=== PATIENT | male | born 1950 | race Caucasian/White ===

== ENCOUNTER 2020-09-20 14:24 | Outpatient (CLI) | payer MEDICARE, OTHER ==
--- NOTE | 2020-09-20 16:13 | Ultrasound Report ---
PROCEDURE: Head or Neck Soft Tissue INDICATIONS: CERVICAL ADENOPATHY TECHNIQUE: Real time scanning was performed of the neck region of interest, with image documentation . COMPARISON: None. FINDINGS: Normal appearing submandibular glands are noted in the area of clinical interest. Prominent bilateral submandibular lymph notes are noted which does not meet pathologic size criteria which hav e normal fatty denisa. IMPRESSION: 1. Normal-appearing submandibular glands noted in the region of clinical interest. 2. Prominent bilateral submandibular lymph nodes which do not meet pathologic size criteria. Ultrasou nd-guided fine-needle aspiration of the lymph nodes could be performed for additional evaluation if t here is continued clinical concern for pathologic lymphadenopathy. Reviewed by: Felisha Grider MD, PhD on 09/20/2020 4:12 PM PDT Approved by: Felisha Grider MD, PhD on 09/20/2020 4:12 PM PDT Station ID: [id number]
== END 2020-09-20 14:25 | disposition home or self-care (01) ==
LOC: DI 14:24
PROVIDERS: ATTEND Internal Medicine
DX: R59.0 Localized enlarged lymph nodes (principal)

== ENCOUNTER 2021-04-19 09:06 | Outpatient (CLI) | payer MEDICARE, OTHER | END 2021-04-19 09:07 | disposition home or self-care (01) | LOC: RT 09:06 | PROVIDERS: ATTEND Internal Medicine | DX: R06.09 Other forms of dyspnea (principal); R06.02 Shortness of breath | CPT/HCPCS: 94060; 94727; 94729 ==

== ENCOUNTER 2022-09-02 09:18 | Outpatient (CLI) | payer MEDICARE, OTHER | END 2022-09-02 09:19 | disposition home or self-care (01) | LOC: DI 09:18 | PROVIDERS: ATTEND Internal Medicine Pulmonary Disease | DX: I77.810 Thoracic aortic ectasia (principal); I51.7 Cardiomegaly; R06.09 Other forms of dyspnea | CPT/HCPCS: 93306 ==

== ENCOUNTER 2023-07-09 11:21 | Emergency (ER) | payer MEDICARE, OTHER ==
[2023-07-09 12:01] LABS: BASOPHILS # (AUTO) 0.1 10^3/uL (0.0-0.1); BASOPHILS % (AUTO) 0.9 %; EOSINOPHILS # (AUTO) 0.1 10^3/uL (0.0-0.7); HCT - HEMATOCRIT 42.1 % (42.0-52.0); HGB - HEMOGLOBIN 14.7 g/dL (14.0-18.0); LYMPHOCYTES # (AUTO) 1.3 10^3/uL (1.5-3.5); LYMPHOCYTES % (AUTO) 22.6 %; MEAN CORPUSCULAR HGB CONC 34.9 g/dL (32.0-36.0); MEAN CORPUSCULAR VOLUME 94.4 fL (80.0-94.0); MEAN PLATELET VOLUME 9.9 fL (7.4-11.4); MONOCYTES # (AUTO) 0.7 10^3/uL (0.0-1.0); MONOCYTES % (AUTO) 12.9 %; NEUTROPHILS # (AUTO) 3.6 10^3/uL (1.5-6.6); NEUTROPHILS % (AUTO) 62.4 %; PLT - PLATELET COUNT 210 10^3/uL (130-450); RED BLOOD COUNT 4.46 10^6/uL (4.70-6.10); WHITE BLOOD COUNT 5.7 x10^3/uL (4.8-10.8)
--- NOTE | 2023-07-09 12:15 | XRAY Report ---
PROCEDURE: Chest 1V INDICATIONS: Chest pain TECHNIQUE: One view of the chest was acquired. COMPARISON: None. FINDINGS: Surgical changes and devices: None. Lungs and pleura: No pleural effusions or pneumothorax. Lungs are clear. Mediastinum: Mediastinal contours appear normal. Heart size is normal. Bones and chest wall: No suspicious bony lesions. Overlying soft tissues appear unremarkable. IMPRESSION: No acute cardiopulmonary process. Reviewed by: Richard Butcher MD on 07/09/2023 12:14 PM PDT Approved by: Richard Butcher MD on 07/09/2023 12:14 PM PDT Station ID: [id number]
[2023-07-09 12:17] LABS: ALBUMIN 4.3 g/dL (3.2-5.5); ALBUMIN/GLOBULIN RATIO 1.7 (1.0-2.2); ALKALINE PHOSPHATASE 58 IU/L (42-121); ALT ALANINE AMINOTRANSFERASE 20 IU/L (10-60); AST ASPARTATE AMINOTRANSFERASE 18 IU/L (10-42); BILIRUBIN,TOTAL 0.7 mg/dL (0.2-1.0); BUN - BLOOD UREA NITROGEN 19 mg/dL (6-20); CALCIUM 9.1 mg/dL (8.5-10.3); CARBON DIOXIDE - CO2 27 mmol/L (21-32); CHLORIDE 107 mmol/L (101-111); CREATININE 1.1 mg/dL (0.6-1.3); GFR - MDRD 66 (>89); GLUCOSE 127 mg/dL (74-104); LIPASE 25 U/L (11-82); POTASSIUM 3.9 mmol/L (3.5-4.5); SODIUM 140 mmol/L (135-145); TOTAL PROTEIN 6.8 g/dL (6.4-8.9)
[2023-07-09 12:23] LABS: TROPONIN I HIGH SENSITIVITY < 2.3 ng/L (2.3-19.7)
--- NOTE | 2023-07-09 12:36 | ED Physician Documentation ---
PD HPI CHEST PAIN - Stated complaint Stated Complaint: SOA,CHEST PX,COUGH - Chief complaint Chief Complaint: Cardiac - History obtained from History obtained from: Patient - Additional information Additional information: 72-year-old gentleman with history of coronary disease and DVT on chronic anticoagulation which she has been compliant with has had a cough since . It got better and then got worse again 2 weeks ago. Is worse if he exerts himself. While coughing he gets some left-sided chest pain that is not present with other exertion nor when not coughing. He called his doctor's office who referred him here for further evaluation and treatment. No fevers. No new pedal edema or calf pain. PD PAST MEDICAL HISTORY - Past Medical History Past Medical History: Yes Cardiovascular: Coronary artery disease, Deep vein thrombosis, Pulmonary embolism Respiratory: Asthma : Kidney stones - Past Surgical History Past Surgical History: No Ortho: Shoulder arthroplasty Cardiovascular: Coronary stent - Allergies Allergies/Adverse Reactions: Allergies Allergy/AdvReac Type Severity Reaction Status Date / Time niacin Allergy Itching Verified 07/09/23 11:35 Penicillins Allergy Itching Verified 07/09/23 11:35 - Social History Does the pt smoke?: No Smoking Status: Never smoker Does the pt drink ETOH?: Yes Does the pt have substance abuse?: No PD ED PE NORMAL - Vitals Vital signs reviewed: Yes - General General: Alert and oriented X 3, No acute distress - Neck Neck: Supple, no meningeal sign, No bony TTP - Cardiac Cardiac: RRR, No murmur - Respiratory Respiratory: No respiratory distress, Clear bilaterally - Abdomen Abdomen: Non tender - Back Back: No CVA TTP - Derm Derm: Normal color, Warm and dry - Extremities Extremities: No edema, No calf tenderness / cord - Neuro Neuro: Alert and oriented X 3, Normal speech Results - Vitals Vitals: Vital Signs - 24 hr 07/09/23 11:27 Temperature 36.3 C L Heart Rate 78 Respiratory 16 Rate Blood Pressure 144/81 H O2 Saturation 98 Oxygen O2 Source Room air - EKG (time done) 1140 EKG releavant findings:: EKG personally interpreted by author of this note. Relevant findings are: Rate: Rate (enter#) (67) Rhythm: NSR [place]: Normal Intervals: Normal [place] QRS: Normal Ischemia: Non specific changes. No: ST elevation c/w ischemia - Labs Labs: Laboratory Tests 07/09/23 07/09/23 11:54 11:54 WBC 5.7 RBC 4.46 L Hgb 14.7 Hct 42.1 MCV 94.4 H MCH 33.0 H MCHC 34.9 RDW 12.0 Plt Count 210 MPV 9.9 Neut # (Auto) 3.6 Lymph # (Auto) 1.3 L [place] # (Auto) 0.7 Eos # (Auto) 0.1 Baso # (Auto) 0.1 Absolute Nucleated RBC 0.00 Nucleated RBC % 0.0 Sodium 140 Potassium 3.9 Chloride 107 Carbon Dioxide 27 Anion Gap 6.0 BUN 19 Creatinine 1.1 Estimated GFR (MDRD) 66 L Glucose 127 H Calcium 9.1 Total Bilirubin 0.7 AST 18 ALT 20 Alkaline Phosphatase 58 Troponin I High Sens < 2.3 L Total Protein 6.8 Albumin 4.3 Globulin 2.5 Albumin/Globulin Ratio 1.7 Lipase 25 - Rads (name of study) 1v cxr- nad Relevant Findings:: Final report received, EMP independent interpretation of test PD Medical Decision Making - ED course ED course: 72-year-old gentleman referred to the emergency department for for cough associated with chest pain. His history is not consistent with ACS and doubt PE given that he is chronically anticoagulated and only has chest pain while coughing. EKG, CBC, CMP, and troponin all normal/negative. He declined anything for the cough. Departure - Departure Disposition: 01 Home, Self Care Clinical Impression: Chest pain Qualifiers: Chest pain type: unspecified Qualified Code(s): R07.9 - Chest pain, unspecified Cough Qualifiers: Cough type: acute Qualified Code(s): R05.1 - Acute cough Condition: Good Record reviewed to determine appropriate education?: Yes Instructions: ED Chest Pain NonCardiac Comments: Chest x-ray, EKG, and cardiac markers were all normal/negative. Given that the chest pain is really only with the cough, we suspect it is related to the cough and nothing more serious. Call your doctor to arrange a follow-up appointment, make the next available appointment. In the interim, return anytime if worse or if new symptoms develop. Note to [facility]: Please copy records to Jackson Wiley MD associated with poly[facility] in [place].
[2023-07-09 12:53] VITALS: BP 150/80; O2SAT 95
== END 2023-07-09 12:56 | disposition home or self-care (01) ==
LOC: ED 11:21
DX: R05.1 Acute cough (principal); R07.9 Chest pain, unspecified; Z79.01 Long term (current) use of anticoagulants; Z86.718 Personal history of other venous thrombosis and embolism
CPT/HCPCS: 36415; 80053; 83690; 84484; 85025; 93005; 99283; 99284

== ENCOUNTER 2023-12-15 08:58 | Outpatient (CLI) | payer MEDICARE, OTHER | END 2023-12-15 08:59 | disposition home or self-care (01) | LOC: DI 08:58 | PROVIDERS: ATTEND Internal Medicine Cardiovascular Disease | DX: I51.7 Cardiomegaly (principal) | CPT/HCPCS: 93307 ==